=== PATIENT | male | born 1995 | race Caucasian/White ===

== ENCOUNTER 2019-05-26 13:52 | Inpatient (IN) ==
[2019-05-26] MEDS ORDERED: *HR* LORazepam 2 MG/ML VIAL ONE ×2 (13:59→15:12)
[2019-05-26] MEDS ORDERED: *HR* LORazepam 2 MG/ML VIAL IM ONE (14:00)
[2019-05-26] MEDS ORDERED: 0.9 % Sodium Chloride 1,000 ML IVC ONE ×2 (14:01→16:05)
[2019-05-26] MEDS ORDERED: Isovue-370 500 ML BOTTLE IVP ONE (14:09)
[2019-05-26 14:49] LABS: Bilirubin,Urine Negative (Negative); Blood,Urine Large (Negative); Clarity,Urine Cloudy (Clear); Color,Urine Dark Yellow (Yellow); Glucose,Urine (UA) Normal (Normal); Ketones,Urine 15 mg/dL (Negative); Leukocyte Esterase,Urine Trace (Negative); Nitrite,Urine Negative (Negative); PH,Urine 5.5 pH Units (5.0-8.0); Protein,Urine 30 mg/dL (Neg-Trace); Specific Gravity,Urine 1.027 (1.010-1.025); Urobilinogen,Urine Normal (Normal)
[2019-05-26 14:50] LABS: Bacteria,Urine None Seen per hpf (None-Few); Hyaline Casts,Urine None Seen per lpf (None-Few); RBC,Urine 15-30 per hpf (0-3); Squamous Epithelial Cell,Urine Few per lpf (None-Few); WBC,Urine 0-3 per hpf (0-3)
[2019-05-26] MEDS ORDERED: Haloperidol Lactate 5 MG/ML VIAL IM STA (14:51)
[2019-05-26 15:02] LABS: Calcium Oxalate Crystals,Urine Present
[2019-05-26 15:07] LABS: Yeast,Urine Few per hpf (None Seen)
[2019-05-26] MEDS ORDERED: *HR* Ketamine 500 MG/5 ML MDV ONE (15:13)
[2019-05-26] MEDS ORDERED: *HR* LORazepam 2 MG/ML VIAL IM STA (15:22)
[2019-05-26 15:40] LABS: Amphetamine Screen,Urine Positive ng/mL (Cutoff=1000); Barbiturate Screen,Urine Negative ng/mL (Cutoff=200); Benzodiazepines Screen,Urine Negative ng/mL (Cutoff=200); Cannabinoid Screen,Urine Negative ng/mL (Cutoff = 50); Cocaine Screen,Urine Negative ng/mL (Cutoff= 300); Opiate Screen,Urine Negative ng/mL (Cutoff=300); Phencyclidine Screen,Urine Negative ng/mL (Cutoff=25)
[2019-05-26 15:49] LABS: Basophils # 0.1 K/mcL (0.0-0.2); Basophils % 0.5 %; Eosinophils # 0.1 K/mcL (0.0-0.6); Eosinophils % 0.7 %; Hematocrit 42.1 % (37.5-50.1); Immature Granulocytes % 0.3 % (0-4); Lymphocytes # 6.3 K/mcL (0.6-4.6); Lymphocytes % 38.5 %; Mean Corpuscular HGB Conc 33.3 g/dL (31.6-35.5); Mean Corpuscular Hemoglobin 29.4 pg (28.0-33.3); Mean Corpuscular Volume 88.3 fL (83.0-100.0); Mean Platelet Volume 9.6 fL (9.4-12.4); Monocytes # 1.8 K/mcL (0.0-1.3); Neutrophils # 8.1 K/mcL (1.6-8.9); Platelet Count 275 K/mcL (140-400); Red Blood Count 4.77 M/mcL (4.19-5.50); Red Cell Distribution Width 14.1 % (11.5-14.5); White Blood Count 16.5 K/mcL (4.3-11.1)
[2019-05-26 16:08] LABS: Alanine Aminotransferase 84 Units/L (7-52); Albumin 4.8 g/dL (3.5-5.7); Albumin/Globulin Ratio 1.8 (1.1-2.2); Alkaline Phosphatase 98 Units/L (34-104); Aspartate Amino Transferase 90 Units/L (13-39); BUN/Creatinine Ratio 16 (6-26); Bilirubin,Direct 0.2 mg/dL (0.0-0.2); Bilirubin,Indirect 0.6 mg/dL (0.0-1.2); Bilirubin,Total 0.8 mg/dL (0.3-1.0); Blood Urea Nitrogen 19 mg/dL (6-20); Calcium 9.8 mg/dL (8.6-10.3); Carbon Dioxide 15 mEq/L (23-29); Chloride 100 mEq/L (98-107); Creatine Kinase 1867 Units/L (30-223); Ethanol < 10 mg/dL (Less than 10); Globulin 2.7 g/dL (2.4-3.5); Glucose 111 mg/dL (70-105); Osmolality,Calculated 291 (280-300); Potassium 3.3 mEq/L (3.5-5.1); Sodium 139 mEq/L (136-145); Total Protein 7.5 g/dL (6.4-8.9); eGFR For African Americans > 60 (> 60); eGFR For Non-African Americans > 60 (> 60)
[2019-05-26 19:03] LABS: VBG HCO3 21 mEq/L (21-27); VBG PCO2 40 mmHg (41-51); VBG PH 7.33 pH Units (7.32-7.42); VBG PO2 106 mmHg (25-50)
[2019-05-26 19:13] LABS: Acetaminophen < 10 mcg/mL (10-20); Salicylate < 2.5 mg/dL (15.0-30.0)
[2019-05-26] MEDS ORDERED: Naloxone 0.4 MG/ML INJ IVP PRN (19:47)
[2019-05-26] MEDS: 0.9 % Sodium Chloride 1,000 ML IVC SCH (19:59)
[2019-05-26] MEDS ORDERED: Haloperidol Lactate 5 MG/ML VIAL IVP PRN (20:33)
[2019-05-26] MEDS ORDERED: *HR* LORazepam 2 MG/ML VIAL IVP PRN (20:34)
[2019-05-26 20:45] LABS: Creatine Kinase 4119 Units/L (30-223); Magnesium 2.2 mg/dL (1.6-2.6); Troponin I < 0.03 ng/mL (< 0.04)
[2019-05-27 00:04] LABS: BUN/Creatinine Ratio 19 (6-26); Blood Urea Nitrogen 14 mg/dL (6-20); Calcium 8.3 mg/dL (8.6-10.3); Carbon Dioxide 20 mEq/L (23-29); Chloride 108 mEq/L (98-107); Glucose 70 mg/dL (70-105); Osmolality,Calculated 279 (280-300); Potassium 3.8 mEq/L (3.5-5.1); Sodium 135 mEq/L (136-145); eGFR For African Americans > 60 (> 60); eGFR For Non-African Americans > 60 (> 60)
[2019-05-27] MEDS: 0.9 % Sodium Chloride 1,000 ML IVC SCH ×6 (01:35→08:42)
[2019-05-27 02:25] LABS: Basophils % 0.4 %; Eosinophils # 0.2 K/mcL (0.0-0.6); Eosinophils % 2.2 %; Hematocrit 36.8 % (37.5-50.1); Immature Granulocytes % 0.2 % (0-4); Lymphocytes % 36.7 %; Mean Corpuscular HGB Conc 33.2 g/dL (31.6-35.5); Mean Corpuscular Hemoglobin 29.3 pg (28.0-33.3); Mean Corpuscular Volume 88.2 fL (83.0-100.0); Mean Platelet Volume 9.6 fL (9.4-12.4); Monocytes # 0.8 K/mcL (0.0-1.3); Monocytes % 9.5 %; Neutrophils # 4.1 K/mcL (1.6-8.9); Platelet Count 179 K/mcL (140-400); Red Blood Count 4.17 M/mcL (4.19-5.50); Red Cell Distribution Width 14.5 % (11.5-14.5)
[2019-05-27 02:30] LABS: Hemoglobin 12.2 g/dL (12.9-16.9); White Blood Count 8.1 K/mcL (4.3-11.1)
[2019-05-27 02:48] LABS: BUN/Creatinine Ratio 19 (6-26); Blood Urea Nitrogen 14 mg/dL (6-20); Calcium 8.1 mg/dL (8.6-10.3); Carbon Dioxide 20 mEq/L (23-29); Chloride 108 mEq/L (98-107); Glucose 67 mg/dL (70-105); Osmolality,Calculated 283 (280-300); Potassium 3.7 mEq/L (3.5-5.1); Sodium 137 mEq/L (136-145); eGFR For African Americans > 60 (> 60); eGFR For Non-African Americans > 60 (> 60)
[2019-05-27] MEDS ORDERED: Ringers Solution, Lactated 1,000 ML IVC SCH (08:15)
[2019-05-27] MEDS: D5% in Lactated Ringers 1,000 ML IVC SCH ×2 (09:43→17:43)
[2019-05-27] MEDS: *HR* Buprenorphine HCl 8 MG TAB.SUBL SL SCH (12:27)
[2019-05-27] MEDS: Nicotine 21 MG PATCH.TD24 TD SCH (17:43)
[2019-05-27] MEDS: Neosporin OINT 15 GM TUBE TP SCH (17:43)
[2019-05-28] MEDS: Acetaminophen 325 MG TABLET PO PRN ×2 (00:28→18:03)
[2019-05-28 06:34] LABS: Basophils % 0.3 %; Eosinophils # 0.2 K/mcL (0.0-0.6); Eosinophils % 2.9 %; Hematocrit 37.1 % (37.5-50.1); Hemoglobin 12.1 g/dL (12.9-16.9); Immature Granulocytes % 0.2 % (0-4); Lymphocytes # 2.2 K/mcL (0.6-4.6); Lymphocytes % 38.3 %; Mean Corpuscular HGB Conc 32.6 g/dL (31.6-35.5); Mean Corpuscular Hemoglobin 29.4 pg (28.0-33.3); Monocytes # 0.5 K/mcL (0.0-1.3); Monocytes % 8.3 %; Neutrophils # 2.9 K/mcL (1.6-8.9); Platelet Count 194 K/mcL (140-400); Red Blood Count 4.12 M/mcL (4.19-5.50); Red Cell Distribution Width 14.6 % (11.5-14.5); White Blood Count 5.8 K/mcL (4.3-11.1)
[2019-05-28] MEDS: Nicotine 21 MG PATCH.TD24 TD SCH (07:55)
[2019-05-28] MEDS: *HR* Buprenorphine HCl 8 MG TAB.SUBL SL SCH (07:55)
[2019-05-28] MEDS: Ringers Solution, Lactated 1,000 ML IVC SCH ×2 (07:56→18:28)
[2019-05-28] MEDS: Neosporin OINT 15 GM TUBE TP SCH ×2 (08:01→20:40)
[2019-05-28 09:12] LABS: BUN/Creatinine Ratio 9 (6-26); Blood Urea Nitrogen 7 mg/dL (6-20); Calcium 8.4 mg/dL (8.6-10.3); Carbon Dioxide 27 mEq/L (23-29); Chloride 106 mEq/L (98-107); Glucose 102 mg/dL (70-105); Magnesium 1.9 mg/dL (1.6-2.6); Osmolality,Calculated 286 (280-300); Phosphorous 3.5 mg/dL (2.7-4.5); Potassium 4.1 mEq/L (3.5-5.1); Sodium 139 mEq/L (136-145); eGFR For African Americans > 60 (> 60); eGFR For Non-African Americans > 60 (> 60)
[2019-05-28 09:48] LABS: Creatine Kinase 7259 Units/L (30-223)
[2019-05-29] MEDS: Ringers Solution, Lactated 1,000 ML IVC SCH (04:53)
[2019-05-29 06:25] VITALS: BP 107/75
[2019-05-29] MEDS ORDERED: Baclofen 10 MG TABLET PO PRN (07:45)
[2019-05-29] MEDS: Nicotine 21 MG PATCH.TD24 TD SCH (08:16)
[2019-05-29] MEDS: *HR* Buprenorphine HCl 8 MG TAB.SUBL SL SCH (08:16)
[2019-05-29] MEDS: Neosporin OINT 15 GM TUBE TP SCH (08:17)
[2019-05-29 08:54] LABS: BUN/Creatinine Ratio 8 (6-26); Blood Urea Nitrogen 6 mg/dL (6-20); Carbon Dioxide 36 mEq/L (23-29); Chloride 101 mEq/L (98-107); Creatine Kinase 5214 Units/L (30-223); Glucose 95 mg/dL (70-105); Magnesium 1.9 mg/dL (1.6-2.6); Osmolality,Calculated 287 (280-300); Phosphorous 4.2 mg/dL (2.7-4.5); Potassium 4.3 mEq/L (3.5-5.1); Sodium 140 mEq/L (136-145); eGFR For African Americans > 60 (> 60); eGFR For Non-African Americans > 60 (> 60)
== END 2019-05-29 11:05 | disposition home or self-care (01) | DRG 351 ==
LOC: 3BNU 13:52 → EMEROOARM 13:52 → 2NNU 20:27
PROVIDERS: ADMIT Internal Medicine Nephrology; ATTEND Internal Medicine

== ENCOUNTER 2019-09-14 18:16 | Observation (INO) ==
[2019-09-14] MEDS ORDERED: Haloperidol Lactate 5 MG/ML VIAL IM ONE (18:24)
[2019-09-14] MEDS ORDERED: Ziprasidone 20 MG/VIAL VIAL IM ONE (18:33)
[2019-09-14] MEDS ORDERED: Water for inj. (sterile) 10 ML ONE (18:33)
[2019-09-14 18:46] LABS: Basophils % 0.4 %; Eosinophils % 0.3 %; Lymphocytes % 28.2 %
[2019-09-14 18:48] LABS: Basophils # 0.1 K/mcL (0.0-0.2); Eosinophils # 0.1 K/mcL (0.0-0.6); Hematocrit 49.8 % (37.5-50.1); Hemoglobin 15.4 g/dL (12.9-16.9); Immature Granulocytes % 0.8 % (0-4); Lymphocytes # 9.6 K/mcL (0.6-4.6); Mean Corpuscular HGB Conc 30.9 g/dL (31.6-35.5); Mean Corpuscular Hemoglobin 29.6 pg (28.0-33.3); Mean Corpuscular Volume 95.6 fL (83.0-100.0); Mean Platelet Volume 10.9 fL (9.4-12.4); Monocytes # 3.6 K/mcL (0.0-1.3); Monocytes % 10.5 %; Platelet Count 316 K/mcL (140-400); Red Blood Count 5.21 M/mcL (4.19-5.50); Red Cell Distribution Width 14.1 % (11.5-14.5); Segmented Neutrophils % 59.8 %
[2019-09-14 18:53] LABS: Neutrophils # 20.3 K/mcL (1.6-8.9)
[2019-09-14 19:02] LABS: Bilirubin,Urine Negative (Negative); Blood,Urine Negative (Negative); Clarity,Urine Clear (Clear); Color,Urine Yellow (Yellow); Glucose,Urine (UA) Normal (Normal); Ketones,Urine Negative (Negative); Leukocyte Esterase,Urine Negative (Negative); Nitrite,Urine Negative (Negative); PH,Urine 6.5 pH Units (5.0-8.0); Protein,Urine 30 mg/dL (Neg-Trace); Specific Gravity,Urine 1.025 (1.010-1.025); Urobilinogen,Urine Normal (Normal)
[2019-09-14 19:06] LABS: Bacteria,Urine None Seen per hpf (None-Few); Hyaline Casts,Urine None Seen per lpf (None-Few); Squamous Epithelial Cell,Urine Many per lpf (None-Few); WBC,Urine 0-3 per hpf (0-3)
[2019-09-14 19:12] LABS: Reactive Lymphocytes Present (Not Present)
[2019-09-14 19:15] LABS: Alanine Aminotransferase 34 Units/L (7-52); Albumin 2.6 g/dL (3.5-5.7); Albumin/Globulin Ratio 1.5 (1.1-2.2); Alkaline Phosphatase 59 Units/L (34-104); Aspartate Amino Transferase 20 Units/L (13-39); BUN/Creatinine Ratio 14 (6-26); Bilirubin,Indirect 0.2 mg/dL (0.0-1.0); Bilirubin,Total 0.2 mg/dL (0.3-1.0); Blood Urea Nitrogen 10 mg/dL (6-20); Calcium 5.4 mg/dL (8.6-10.3); Carbon Dioxide 5 mEq/L (23-29); Chloride 122 mEq/L (98-107); Ethanol < 10 mg/dL (Less than 10); Globulin 1.7 g/dL (2.4-3.5); Glucose 130 mg/dL (70-105); Osmolality,Calculated 305 (280-300); Potassium 1.9 mEq/L (3.5-5.1); Sodium 147 mEq/L (136-145); Total Protein 4.3 g/dL (6.4-8.9); eGFR For African Americans > 60 (> 60); eGFR For Non-African Americans > 60 (> 60)
[2019-09-14 19:16] LABS: Amphetamine Screen,Urine Positive ng/mL (Cutoff=1000); Barbiturate Screen,Urine Negative ng/mL (Cutoff=200); Benzodiazepines Screen,Urine Negative ng/mL (Cutoff=200); Cannabinoid Screen,Urine Negative ng/mL (Cutoff = 50); Cocaine Screen,Urine Negative ng/mL (Cutoff= 300); Opiate Screen,Urine Negative ng/mL (Cutoff=300); Phencyclidine Screen,Urine Negative ng/mL (Cutoff=25)
[2019-09-14] MEDS ORDERED: Calcium Gluconate 1gm/50mL 1 GM/50 ML BAG IVPB ONE (19:18)
[2019-09-14] MEDS ORDERED: Piperacillin/Tazobactam 3.375 GM in 0.9 % Sodium Chloride Mini Bag 100 ML IVPB ONE (19:20)
[2019-09-14] MEDS ORDERED: Potassium Chloride Elixir 20 MEQ/15 ML UDC PO ONE (20:02)
[2019-09-14 20:04] LABS: Creatine Kinase 146 Units/L (30-223)
[2019-09-14] MEDS: 0.9 % Sodium Chloride 1,000 ML IVC SCH ×2 (20:15→21:07)
[2019-09-14 20:21] LABS: VBG Ionized Calcium 1.19 mmol/L (1.15-1.35)
[2019-09-14] MEDS ORDERED: *HR* LORazepam 2 MG/ML VIAL IVP ONE (23:01)
[2019-09-14] MEDS ORDERED: 0.9 % Sodium Chloride 1,000 ML IVC ONE (23:01)
[2019-09-14 23:08] LABS: Magnesium 1.3 mg/dL (1.6-2.6); Phosphorous 2.3 mg/dL (2.7-4.5)
[2019-09-14] MEDS ORDERED: Haloperidol Lactate 5 MG/ML VIAL IVP ONE (23:20)
[2019-09-15] MEDS ORDERED: *HR* LORazepam 2 MG/ML VIAL IVP PRN (00:30)
[2019-09-15 00:34] LABS: VBG HCO3 22 mEq/L (21-27); VBG Ionized Calcium 1.04 mmol/L (1.15-1.35); VBG PCO2 40 mmHg (41-51); VBG PH 7.34 pH Units (7.32-7.42); VBG PO2 217 mmHg (25-50)
[2019-09-15 01:01] LABS: BUN/Creatinine Ratio 11 (6-26); Blood Urea Nitrogen 12 mg/dL (6-20); Calcium 8.8 mg/dL (8.6-10.3); Carbon Dioxide 23 mEq/L (23-29); Chloride 111 mEq/L (98-107); Glucose 135 mg/dL (70-105); Magnesium 2.1 mg/dL (1.6-2.6); Osmolality,Calculated 294 (280-300); Phosphorous 2.2 mg/dL (2.7-4.5); Potassium 3.6 mEq/L (3.5-5.1); Sodium 141 mEq/L (136-145); Troponin I 0.05 ng/mL (< 0.04); eGFR For African Americans > 60 (> 60); eGFR For Non-African Americans > 60 (> 60)
[2019-09-15] MEDS ORDERED: 0.9 % Sodium Chloride 500 ML ONE (01:06)
[2019-09-15] MEDS ORDERED: Aspirin Enteric Coated 81 MG Tablet PO ONE (01:15)
[2019-09-15] MEDS ORDERED: Naloxone 0.4 MG/ML INJ IVP PRN (01:32)
[2019-09-15] MEDS: 0.9 % Sodium Chloride 1,000 ML IVC SCH ×3 (01:42→09:27)
[2019-09-15] MEDS: Ringers Solution, Lactated 1,000 ML IVC SCH ×2 (03:01→16:04)
[2019-09-15] MEDS: Calcium Gluconate 1gm/50mL 1 GM/50 ML BAG IVPB SCH ×2 (03:04→06:41)
[2019-09-15 05:53] LABS: Basophils % 0.2 %; Eosinophils % 0.2 %; Hematocrit 41.4 % (37.5-50.1); Immature Granulocytes % 0.5 % (0-4); Lymphocytes # 3.2 K/mcL (0.6-4.6); Lymphocytes % 29.5 %; Mean Corpuscular HGB Conc 32.6 g/dL (31.6-35.5); Mean Corpuscular Hemoglobin 29.4 pg (28.0-33.3); Mean Corpuscular Volume 90.2 fL (83.0-100.0); Mean Platelet Volume 10.4 fL (9.4-12.4); Monocytes # 1.1 K/mcL (0.0-1.3); Monocytes % 10.5 %; Neutrophils # 6.4 K/mcL (1.6-8.9); Platelet Count 189 K/mcL (140-400); Red Blood Count 4.59 M/mcL (4.19-5.50); Red Cell Distribution Width 14.4 % (11.5-14.5); Segmented Neutrophils % 59.1 %; White Blood Count 10.9 K/mcL (4.3-11.1)
[2019-09-15 05:54] LABS: Hemoglobin 13.5 g/dL (12.9-16.9)
[2019-09-15 06:14] LABS: BUN/Creatinine Ratio 10 (6-26); Blood Urea Nitrogen 10 mg/dL (6-20); Calcium 9.1 mg/dL (8.6-10.3); Carbon Dioxide 26 mEq/L (23-29); Chloride 108 mEq/L (98-107); Glucose 105 mg/dL (70-105); Osmolality,Calculated 289 (280-300); Potassium 3.9 mEq/L (3.5-5.1); Sodium 140 mEq/L (136-145); eGFR For African Americans > 60 (> 60); eGFR For Non-African Americans > 60 (> 60)
[2019-09-15 06:16] LABS: Troponin I 0.07 ng/mL (< 0.04)
[2019-09-15] MEDS ORDERED: *HR* Heparin 5,000 UNIT/ML VIAL IVP ONE (06:30)
[2019-09-15] MEDS ORDERED: *HR* Heparin 5,000 UNIT/ML VIAL IVP PRN ×2 (06:30)
[2019-09-15] MEDS ORDERED: Heparin 25,000 UNIT/250 ML D5W 25,000 UNIT/250 ML IV.SOLN IVC SCH (06:30)
[2019-09-15 06:37] LABS: Hepatitis B Surface Antigen Nonreactive (Nonreactive)
[2019-09-15 07:06] LABS: Hepatitis B Core IgM Nonreactive (Nonreactive)
[2019-09-15 07:07] LABS: Hepatitis A Antibody IgM Nonreactive (Nonreactive)
[2019-09-15 07:23] LABS: INR 1.2; Prothrombin Time 13.3 Seconds (9.4-12.1)
[2019-09-15 08:30] LABS: Hepatitis C Virus Antibody Reactive (Nonreactive)
[2019-09-15 09:15] LABS: Hematocrit 41.2 % (37.5-50.1); Mean Corpuscular Hemoglobin 29.6 pg (28.0-33.3); Mean Corpuscular Volume 87.1 fL (83.0-100.0); Mean Platelet Volume 10.7 fL (9.4-12.4); Platelet Count 196 K/mcL (140-400); Red Blood Count 4.73 M/mcL (4.19-5.50); Red Cell Distribution Width 14.5 % (11.5-14.5); White Blood Count 10.1 K/mcL (4.3-11.1)
[2019-09-15] MEDS: Cefepime HCl 2,000 MG in Water for inj. (sterile) 20 ML IVP SCH ×2 (09:34→15:53)
[2019-09-15] MEDS ORDERED: Aminoglycoside Consult 1 EACH MC ONE (11:09)
[2019-09-15 15:48] LABS: BUN/Creatinine Ratio 10 (6-26); Blood Urea Nitrogen 9 mg/dL (6-20); Calcium 9.5 mg/dL (8.6-10.3); Carbon Dioxide 28 mEq/L (23-29); Chloride 104 mEq/L (98-107); Glucose 96 mg/dL (70-105); Osmolality,Calculated 285 (280-300); Potassium 3.9 mEq/L (3.5-5.1); Sodium 138 mEq/L (136-145); eGFR For African Americans > 60 (> 60); eGFR For Non-African Americans > 60 (> 60)
[2019-09-15] MEDS ORDERED: cloNIDine HCl 0.1 MG TABLET PO PRN (17:09)
[2019-09-16] MEDS: Cefepime HCl 2,000 MG in Water for inj. (sterile) 20 ML IVP SCH (01:04)
[2019-09-16] MEDS: Ringers Solution, Lactated 1,000 ML IVC SCH (04:55)
[2019-09-16 07:05] VITALS: BP 95/52
[2019-09-16 08:43] LABS: Basophils % 0.4 %; Eosinophils # 0.3 K/mcL (0.0-0.6); Eosinophils % 4.4 %; Hematocrit 42.9 % (37.5-50.1); Hemoglobin 14.5 g/dL (12.9-16.9); Immature Granulocytes % 0.3 % (0-4); Lymphocytes # 2.4 K/mcL (0.6-4.6); Lymphocytes % 32.4 %; Mean Corpuscular HGB Conc 33.8 g/dL (31.6-35.5); Mean Corpuscular Hemoglobin 29.4 pg (28.0-33.3); Mean Corpuscular Volume 86.8 fL (83.0-100.0); Mean Platelet Volume 10.5 fL (9.4-12.4); Monocytes # 0.5 K/mcL (0.0-1.3); Monocytes % 7.1 %; Neutrophils # 4.1 K/mcL (1.6-8.9); Platelet Count 186 K/mcL (140-400); Red Blood Count 4.94 M/mcL (4.19-5.50); Red Cell Distribution Width 14.4 % (11.5-14.5); Segmented Neutrophils % 55.4 %; White Blood Count 7.3 K/mcL (4.3-11.1)
[2019-09-16 09:07] LABS: BUN/Creatinine Ratio 9 (6-26); Blood Urea Nitrogen 6 mg/dL (6-20); Calcium 9.1 mg/dL (8.6-10.3); Carbon Dioxide 29 mEq/L (23-29); Chloride 101 mEq/L (98-107); Glucose 135 mg/dL (70-105); Magnesium 1.8 mg/dL (1.6-2.6); Osmolality,Calculated 282 (280-300); Phosphorous 3.6 mg/dL (2.7-4.5); Potassium 3.8 mEq/L (3.5-5.1); Sodium 136 mEq/L (136-145); eGFR For African Americans > 60 (> 60); eGFR For Non-African Americans > 60 (> 60)
== END 2019-09-16 11:10 | disposition home or self-care (01) ==
LOC: 2NNU 18:16 → EMEROOARM 18:16 → MERGE 22:03 → SUATTDRO 22:03 → 2NNU 09-15 07:10
PROVIDERS: ADMIT Family Medicine; ATTEND Internal Medicine